=== PATIENT | male | born 1935 | race Caucasian/White ===

== ENCOUNTER 2017-06-14 12:22 | Outpatient (CLI) | payer MEDICARE ==
--- NOTE | 2017-06-14 14:53 | RAD ---
TWO VIEWS RIGHT KNEE: Indication: Right knee pain. Comparison: None. FINDINGS: There is mild osteoarthrosis involving the right knee, predominately affecting the medial patella and patellofemoral compartments. There is mild joint capsular distention. No acute fracture is evident. IMPRESSION: Mild osteoarthrosis. No acute osseous abnormality. POS: [facility]
== END 2017-06-14 12:23 | disposition home or self-care (01) ==
LOC: SCSRAD 12:22
PROVIDERS: ATTEND Family Medicine
DX: M25.561 Pain in right knee (principal); M17.11 Unilateral primary osteoarthritis, right knee

== ENCOUNTER 2018-02-01 07:35 | Inpatient (IN) | payer MEDICARE ==
[2018-02-01 08:36] LABS: #Eosinphils 0.1 thou/uL (0.0-0.7); #Lymphocytes 2.2 thou/uL (1.20-3.40); #Monocytes 0.7 thou/uL (0.11-0.59); #Neutrophils 4.9 thou/uL (1.40-6.50); %Basophils 0.2 % (0.0-1.0); %Eosinophils 1.5 % (0.0-10.0); %Lymphocytes 27.5 % (21.0-51.0); %Monocytes 8.7 % (0.0-10.0); Hemoglobin 12.4 g/dL (14.0-18.0); Mean Corpuscular Volume 96.7 fL (78.0-98.0); Mean Platelet Volume 7.2 fL (7.4-10.4); Platelet Count 224 thou/uL (130-400); RBC Distribution Width 11.5 % (11.5-14.5); Red Blood Cell (RBC) Count 4.01 mill/uL (4.70-6.10)
[2018-02-01 09:03] LABS: Anion Gap 12 mmol/L (10-20); BUN (Urea Nitrogen) 30 mg/dL (8.4-25.7); Calc. Creatinine Clearance 59 mL/min (70-130); Calcium 9.3 mg/dL (7.8-10.44); Carbon Dioxide 27 mmol/L (23-31); Chloride 104 mmol/L (98-107); Estimated GFR-MDRD 56; Glucose 99 mg/dL (83-110); Potassium 3.9 mmol/L (3.5-5.1); Sodium 139 mmol/L (136-145)
[2018-02-01] MEDS ORDERED: Sodium Chloride 0.9% 10 ML ONE (10:28)
[2018-02-01] MEDS ORDERED: Fentanyl 100 MCG/2 ML VIAL ONE ×4 (10:30→12:52)
[2018-02-01] MEDS ORDERED: CEFAZOLIN/Water 2 GM/20 ML SYRINGE ONE (10:36)
[2018-02-01] MEDS ORDERED: Ondansetron HCl/PF 4 MG/2 ML Vial IVP PRN (12:07)
[2018-02-01] MEDS ORDERED: Promethazine HCl 25 MG/ML VIAL SLOW IVP PRN (12:07)
[2018-02-01] MEDS ORDERED: Promethazine HCl 25 MG/ML VIAL IM PRN ×2 (12:07→14:23)
[2018-02-01] MEDS ORDERED: Morphine Sulfate 2 MG/ML SYRINGE SLOW IVP PRN (12:07)
--- NOTE | 2018-02-01 13:55 | OP ---
DATE OF PROCEDURE: 02/01/2018 SURGEON: Dayday Navarrete M.D. PHOTOGRAPHY PROFESSOR: Celine Rahman PA-C. PROCEDURES: Exploration of spinal fusion L4-L5, removal of hardware left L4-L5, posterolateral arthr odesis L4-L5, cancellous bone chips, local morselized autograft, BMP, pedicle screw instrumentation L 4-L5. PROCEDURE IN DETAIL: The patient was brought to the operating room and intubated. He was rolled in the prone position on gel-filled chest rolls. The previous incision was reopened and the L4-L5 regio n was explored. We removed the broken screw heads, rods and nuts without difficulty. We explored th e fusion and could not be convinced that it was solid. We next placed pedicle screws at right L4 and right L5 using lateral fluoroscopic guidance. A sobeida was secured between the screws, connected by nu ts, which were final tightened. The left lateral and posterolateral surfaces were prepared for the p urpose of arthrodesis and a combination of cancellous bone chips and local morselized autograft was c ombined with BMP on a Gelfoam pledget and laid in the lateral gutter at L4-L5 on the left. The wound was then irrigated, immaculate hemostasis was secured, vancomycin powder was applied and the wound w as closed in anatomic layers.
[2018-02-01] MEDS ORDERED: Morphine 4 MG/ML VIAL SLOW IVP PRN (14:23)
[2018-02-01] MEDS ORDERED: diphenhydrAMINE 25 MG CAP PO PRN (14:23)
[2018-02-01] MEDS ORDERED: traMADol HCl 50 MG TAB PO PRN ×2 (14:23)
[2018-02-01] MEDS ORDERED: HYDROcodone/Acetaminophen 10/325 mg Tablet PO PRN (14:23)
[2018-02-01] MEDS ORDERED: tiZANidine HCl 4 MG TAB PO PRN (14:23)
[2018-02-01] MEDS ORDERED: Promethazine 25 MG TAB PO PRN (14:23)
[2018-02-01] MEDS ORDERED: Ondansetron PF 4 MG/2 ML Vial IM PRN (14:23)
[2018-02-01] MEDS ORDERED: Milk Of Magnesia 30 ML UDCUP PO PRN (14:23)
[2018-02-01] MEDS ORDERED: diphenhydrAMINE 50 MG/ML VIAL IVP PRN (14:23)
[2018-02-01] MEDS ORDERED: Mag-Al 1200 mg/1200 mg/30 ML UDCUP PO PRN (14:23)
[2018-02-01] MEDS ORDERED: Promethazine HCl 12.5 MG SUPP PR PRN (14:23)
[2018-02-01] MEDS ORDERED: Ondansetron PF 4 MG/2 ML Vial ONE (14:49)
[2018-02-01] MEDS ORDERED: Lidocaine 1% PF 5 ML VIAL ONE (14:49)
[2018-02-01] MEDS ORDERED: Glycopyrrolate 0.2 MG/ML 5 ML SYRINGE ONE (14:49)
[2018-02-01] MEDS ORDERED: Dexamethasone 20 MG/5 ML VIAL ONE (14:49)
[2018-02-01] MEDS ORDERED: PROPOFOL 200 MG/20 ML VIAL ONE (14:49)
[2018-02-01] MEDS: Gabapentin 300 MG CAP PO SCH ×2 (17:26→20:30)
[2018-02-01 17:45] VITALS: BMI 25.7
[2018-02-01] MEDS: Sodium Chloride 0.9% 1,000 ML IV SCH (18:47)
--- NOTE | 2018-02-01 19:01 | CON ---
DATE OF CONSULTATION: 02/01/2018 ATTENDING PHYSICIAN: Dr. Navarrete REASON FOR CONSULTATION: Postoperative medical management. HISTORY OF PRESENT ILLNESS: Patient is an 82-year-old male with a history of a prior lumbar stabiliz ation surgery having some persistent pain who returns today to have broken hardware removed and that occurred this morning. Patient had removal of L4-L5 hardware, posterolateral arthrodesis at L4-L5 wi th cancellous bone chips, local morselization autograft, BMP pedicle screws and instrumentation at L4 -5 on the right. The patient reports he is currently having a bit of postoperative pain in one spot in the lower back, but is having no pain in his legs or radicular type symptoms. Right now patient's primary concern is that he has not seen his daughter since the surgery, although the nurses have yang arently been trying to locate her. PAST MEDICAL HISTORY: Notable for hypertension, hyperlipidemia, depression, anxiety, insomnia, perip heral neuropathy, obstructive sleep apnea, and diverticulosis. PAST SURGICAL HISTORY: Prior lumbar spine surgery and a pelvic fracture repair. SOCIAL HISTORY: Nonsmoker, social drinker. Patient is . He reports his surrogate decision hailey beasley would be his daughter, Cortney Banegas and he is a [employer]. FAMILY HISTORY: Father of a myocardial infarction. Mother quite elderly of pneumonia. REVIEW OF SYSTEMS: A 10-system review was negative. ALLERGIES: None. CURRENT MEDICATIONS: Pravastatin 40 mg at bedtime, Prozac 20 mg every day, B12 1000 mg p.o. daily, v itamin D3 5000 units daily, hydrocodone 10/325 one p.o. b.i.d., Prinzide 1 p.o. daily, Neurontin 600 mg p.o. t.i.d., trazodone 50 mg at bedtime. PHYSICAL EXAMINATION: VITAL SIGNS: Pulse 50-64, respirations 16, BP 130/71, O2 sat 96%. GENERAL APPEARANCE: Age appropriate male. He is awake and alert. He has no distress. He is pleasa nt and conversant. HEENT: Pupils are slightly constricted and modestly reactive. He has no OP lesions. Tiny spot of e rythema on the left lateral soft palate distally. NECK: Supple and symmetric without lymphadenopathy, JVD, or carotid bruits. CARDIOVASCULAR: Regular rate and rhythm with a 2/6 murmur at the left upper sternal border. LUNGS: Clear to auscultation bilaterally. ABDOMEN: Soft, nontender, nondistended, positive bowel sounds. EXTREMITIES: Warm and dry with good peripheral circulation. Normal sensation throughout the lower e xtremities. LABORATORY DATA: White count 8.0, hemoglobin 12.4, platelets 224. Sodium 139, potassium 3.9, chlori de 104, CO2 27, BUN 30, creatinine 1.24, glucose 99, calcium 9.3. IMPRESSION AND PLAN: 1. Postop lumbar spinal stabilization surgery following removal of broken hardware. Patient is doin g well. We will defer postoperative management to the surgery team. 2. Hypertension, stable. The patient is back on his usual home regimen. We will continue to monito r. 3. Hyperlipidemia. He is back on his statin. 4. Peripheral neuropathy. Patient is on his usual gabapentin dose. 5. Depression and anxiety. Continue with his fluoxetine and trazodone. I appreciate the opportunity to participate in this patient's care.
[2018-02-01] MEDS: HYDROcodone/Acetaminophen 10/325 mg Tablet PO SCH (20:29)
[2018-02-01] MEDS: CEFAZOLIN/Water 2 GM/20 ML SYRINGE SLOW IVP SCH (20:29)
[2018-02-01] MEDS: Atorvastatin Calcium 10 MG TAB PO SCH (20:30)
[2018-02-01] MEDS: traZODone HCl 50 MG TAB PO SCH (20:30)
[2018-02-02] MEDS: HYDROcodone/Acetaminophen 10/325 mg Tablet PO PRN ×2 (00:18→15:51)
[2018-02-02] MEDS: CEFAZOLIN/Water 2 GM/20 ML SYRINGE SLOW IVP SCH (03:38)
[2018-02-02] MEDS: Sodium Chloride 0.9% 1,000 ML IV SCH ×2 (04:22→21:10)
[2018-02-02] MEDS: Lisinopril/Hydrochlorothiazide 20/25 mg Tablet PO SCH (08:12)
--- NOTE | 2018-02-02 08:14 | EKG ---
Test Reason : PREOP Blood Pressure : / mmHG Vent. Rate : 049 BPM Atrial Rate : 049 BPM P-R Int : 184 ms QRS Dur : 082 ms QT Int : 472 ms P-R-T Axes : 035 012 019 degrees QTc Int : 426 ms Sinus bradycardia Otherwise normal ECG When compared with ECG of 01-AUG-2013 06:56, No significant change was found Confirmed by DONOVAN WARNER ([id number]) on 02/02/2018 8:13:27 AM Referred By: JOSE Confirmed By:DONOVAN WARNER
[2018-02-02] MEDS: Gabapentin 300 MG CAP PO SCH ×3 (08:15→21:09)
[2018-02-02] MEDS: HYDROcodone/Acetaminophen 10/325 mg Tablet PO SCH ×2 (08:15→21:08)
[2018-02-02] MEDS: FLUoxetine HCl 20 MG CAP PO SCH (08:15)
[2018-02-02] MEDS: Cyanocobalamin (Vitamin B-12) 1,000 MCG TAB PO SCH (08:15)
[2018-02-02] MEDS ORDERED: Senokot S 8.6-50 MG TAB PO SCH (12:00)
--- NOTE | 2018-02-02 12:59 | PRG ---
DATE OF SERVICE: 02/02/2018 SUBJECTIVE: The patient reports he is feeling well today. He has only minimal pain. He is concerne d about making sure he stays regular with his bowel movements. PHYSICAL EXAMINATION: VITAL SIGNS: Temperature 98.1, pulse 47 to 60, respirations 18, O2 sat 93% on room air, BP 110/54. GENERAL: Age appropriate male in no distress. He is awake, alert, oriented, pleasant, cooperative. CARDIOVASCULAR: Heart regular rate and rhythm without gallops or rubs. He does have a 2/6 murmur at the left upper sternal border. LUNGS: Clear to auscultation bilaterally with good chest wall expansion, air exchange. ABDOMEN: Flat, soft, nontender, nondistended with positive bowel sounds. No organomegaly. EXTREMITIES: Warm and dry with good peripheral pulses and sensation. ASSESSMENT AND PLAN: 1. Postop lumbar stabilization surgery, doing well. Continue postoperative plan. 2. Hypertension is stable with his usual home regimen. 3. Hyperlipidemia, stable on statin. 4. Peripheral neuropathy, stable with his usual gabapentin dose. 5. History of depression, anxiety. Continue with his fluoxetine and trazodone.
[2018-02-02] MEDS: Atorvastatin Calcium 10 MG TAB PO SCH (21:09)
[2018-02-02] MEDS: Senokot S 8.6-50 MG TAB PO SCH (21:09)
[2018-02-02] MEDS: traZODone HCl 50 MG TAB PO SCH (21:09)
[2018-02-03] MEDS: Sodium Chloride 0.9% 1,000 ML IV SCH (05:22)
[2018-02-03] MEDS: HYDROcodone/Acetaminophen 10/325 mg Tablet PO PRN (05:25)
[2018-02-03] MEDS: Lisinopril/Hydrochlorothiazide 20/25 mg Tablet PO SCH (07:57)
[2018-02-03] MEDS: FLUoxetine HCl 20 MG CAP PO SCH (07:58)
[2018-02-03] MEDS: Gabapentin 300 MG CAP PO SCH (07:58)
[2018-02-03] MEDS: HYDROcodone/Acetaminophen 10/325 mg Tablet PO SCH (07:58)
[2018-02-03] MEDS: Senokot S 8.6-50 MG TAB PO SCH (07:59)
[2018-02-03] MEDS: Cyanocobalamin (Vitamin B-12) 1,000 MCG TAB PO SCH (07:59)
[2018-02-03 08:00] VITALS: BP 138/70
[2018-02-03 11:11] VITALS: TEMP 99.1
--- NOTE | 2018-02-03 12:01 | DIS ---
DATE OF ADMISSION: 02/01/2018 DATE OF DISCHARGE: 02/03/2018 ATTENDING PHYSICIAN: Dayday Navarrete M.D. HOSPITAL COURSE: The patient is an 82-year-old male status post revision of L4-L5 lumbar fusion with BNP. The patient tolerated the procedure well and after was admitted to the Med/Surg floor where he was monitored closely , pain was well controlled with p.o. medications, and he was tolerating a regular diet. The patient did initially have some bloody drainage from this incision, but this resolved after postoperative day #1 and he has had no additional drainage issues. The patient has been mobilizing well as physical therapy and using an LSO brace for all out of bed activities which he has provided from home. This morning at the bedside he is awake, alert, comfortable. He has free active range of motion of all extremities, 5/5 strength throughout. No reflex asymmetry. He has a well-healing incision with lyndsay intact. We will plan to dismiss the patient to home later today. I have discussed home care precautions and will plan to follow up with the patient in 2 weeks with x- rays. Please reach out to Neurosurgery for additional questions or concerns. BARB
== END 2018-02-03 14:29 | disposition home or self-care (01) | DRG 460 ==
LOC: SURG A 07:35 → EDSTATUS 10:28 → SJJU 12:54
PROVIDERS: ADMIT Neurological Surgery; ATTEND Neurological Surgery
PROC: 0SG0071 Fusion of Lumbar Vertebral Joint with Autologous Tissue Substitute, Posterior Approach, Posterior Column, Open Approach (ICD-10-PCS; principal; 2018-02-01)
PROC: 0SP004Z Removal of Internal Fixation Device from Lumbar Vertebral Joint, Open Approach (ICD-10-PCS; 2018-02-01)
DX: T84.498A Other mechanical complication of other internal orthopedic devices, implants and grafts, initial encounter (principal); I10 Essential (primary) hypertension; E78.5 Hyperlipidemia, unspecified; F41.9 Anxiety disorder, unspecified; G47.00 Insomnia, unspecified; M47.9 Spondylosis, unspecified; G47.33 Obstructive sleep apnea (adult) (pediatric); R33.9 Retention of urine, unspecified; Z82.49 Family history of ischemic heart disease and other diseases of the circulatory system; G62.9 Polyneuropathy, unspecified; K57.90 Diverticulosis of intestine, part unspecified, without perforation or abscess without bleeding; F32.9 Major depressive disorder, single episode, unspecified
CPT/HCPCS: 36415; 76001; 80048; 85025; 93005; 93010; C1713; G8978-GP-CJ; G8979-GP-CI; J1100; J1200; J2001; J2405; J2704; J3010; J3370; J3490

== ENCOUNTER 2018-02-17 10:07 | Outpatient (CLI) | payer MEDICARE ==
--- NOTE | 2018-02-17 12:45 | RAD ---
LUMBAR SPINE SERIES TWO VIEWS: HISTORY: Followup from surgery. COMPARISON: 03/28/2014 FINDINGS: A single screw is seen across the left SI joint. There has been removal of a portion of the left-kristal ed pedicle screws at the L4-L5 level, and now there has been placement of right-sided pedicle screws also at this level. Spondylolisthesis of L4 and L5 is noted, of approximately 11 mm. Disk narrowing is seen at L2-L3, L3-L4, L4-L5, and L5-S1. IMPRESSION: Interval removal of the nonfractured component of the left-sided pedicle screws L4-L5. Portions of t he screws still remain. There has been replacement of right-sided pedicle screws at this level. POS: [facility]
== END 2018-02-17 10:08 | disposition home or self-care (01) ==
LOC: TBSIIMAG 10:07
PROVIDERS: ATTEND Physician Assistant
DX: M54.17 Radiculopathy, lumbosacral region (principal); Z98.1 Arthrodesis status
CPT/HCPCS: 72100

== ENCOUNTER 2018-03-30 13:53 | Outpatient (CLI) | payer MEDICARE ==
--- NOTE | 2018-03-30 14:34 | RAD ---
RADIOGRAPH LUMBAR SPINE 2 VIEWS: DATE: 03/30/18 HISTORY: 82-year-old male with: ICD-10: M54.5 low back pain. COMPARISON: 02/17/13. FINDINGS: There are five lumbar-type vertebrae. There has been interval removal of the dorsal skin lyndsay. There has been no other interval change. Long metallic plate and multiple screws fixating the left pelvis, including the posterior aspect of t he left acetabulum. Single, transversely oriented, partially threaded screw across left SI joint with distal tip at ventral aspect of the S1 vertebral body. There are five lumbar-type vertebrae. Levoscoliosis with apex of curvature at approximately L2. Right pedicle screws at L4 and L5 with vertical interlocking sobeida. Abandoned distal screw components in the left pedicles and bodies of L4 and L5. Prominent Grade I anterolisthesis of L4 on L5. Mild to modera te disc space narrowing asymmetrically at all levels from L2-3 through L5-S1. Severe degenerative fac et changes at L4-5 and L5-S1. Grade I left lateral chronic subluxation of L3 on L4. There is asymmetrically severe joint space narrowing, and mild irregularity, of the right hip joint, only partially imaged. IMPRESSION: 1. Right pedicle screws with interlocking sobeida, at L4-5. 2. Abandoned left pedicle screws at L4 and L5. 3. Prominent Grade I spondylolisthesis at L4-5. 4. Lumbar spondylosis, consisting of multilevel degenerative disc disease, high grade lower level fa cet osteoarthrosis, and levoscoliosis. 5. Arthrodesis of left sacroiliac joint with single long screw. 6. Status post open reduction and internal fixation of left posterior acetabulum. 7. High grade osteoarthrosis of the right hip. 8. No significant interval change since 02/17/18. MARCI [] POS: [facility]
== END 2018-03-30 13:54 | disposition home or self-care (01) ==
LOC: TBSIIMAG 13:53
PROVIDERS: ATTEND Neurological Surgery
DX: M54.5 Low back pain (principal); M41.9 Scoliosis, unspecified; M47.816 Spondylosis without myelopathy or radiculopathy, lumbar region; M47.817 Spondylosis without myelopathy or radiculopathy, lumbosacral region; M16.11 Unilateral primary osteoarthritis, right hip; Z98.1 Arthrodesis status
CPT/HCPCS: 72100

== ENCOUNTER 2018-05-30 13:46 | Outpatient (CLI) | payer MEDICARE ==
--- NOTE | 2018-05-30 14:59 | RAD ---
LUMBAR SPINE TWO VIEWS: HISTORY: Radiculopathy. Back surgery. COMPARISON: 03/30/2018 FINDINGS: Stable hardware. Stable broken screws along the left L4 and L5 level. Stable solitary screw jozef ing the left SI joint and left bony pelvis. Stable anterolisthesis of L4 upon L5 (1 cm). Stable mild loss of disk space height in the distal tho racic spine. IMPRESSION: No change. POS: [facility]
== END 2018-05-30 13:47 | disposition home or self-care (01) ==
LOC: TBSIIMAG 13:46
PROVIDERS: ATTEND Neurological Surgery
DX: M54.16 Radiculopathy, lumbar region (principal)
CPT/HCPCS: 72100

== ENCOUNTER 2019-12-07 07:40 | Outpatient (CLI) | payer MEDICARE, OTHER ==
[2019-12-08 14:02] LABS: SARS-CoV-2 MS2 Positive; SARS-CoV-2 N Gene Negative; SARS-CoV-2 S Gene Negative; SARS-CoV-2 by NAA Not Detected (NotDetected); SARS-CoV-2 orf1ab Negative
== END 2019-12-07 07:41 | disposition home or self-care (01) ==
LOC: LABBT 07:40
PROVIDERS: ATTEND Neurological Surgery
DX: M54.16 Radiculopathy, lumbar region (principal); M43.16 Spondylolisthesis, lumbar region; Z20.828 Contact with and (suspected) exposure to other viral communicable diseases
CPT/HCPCS: 87635; U0003

== ENCOUNTER 2019-12-07 11:15 | Inpatient (IN) | payer MEDICARE ==
[2019-12-11 11:06] VITALS: BMI 26.4
--- NOTE | 2019-12-11 21:49 | HP ---
HISTORY: Mr. Moore has a history of prior left SI joint fusion as well as a prior lumbar spinal fusion. Unfortunately, this fusion had half of the construct break and the screws were removed. He presents now with right-sided radiculopathy that has components of L5 and L4. Pain started in the beginning of 2019, has a new MRI scan and flexion-extension x-rays from [facility] that reveal some instability. Recent CT shows possible lucency around the hardware, which very well could explain the symptoms that he is experiencing. He hopes to discuss some type of surgical intervention if possible. PAST MEDICAL HISTORY: Significant for hypertension. PAST SURGICAL HISTORY: Lumbar spinal fusion, SI joint fusion. CURRENT MEDICATIONS: [place], vitamin D, aspirin, fluoxetine, lisinopril, tramadol, pravastatin, trazodone, and gabapentin. ALLERGIES: NO KNOWN DRUG ALLERGIES. PHYSICAL EXAMINATION: Deferred for [facility] visit. ASSESSMENT: Lumbar back pain and lumbar radiculopathy. PLAN: Dr. Ferrer met with the patient, reviewed imaging, and advocated for an exploration of his L4-5 fusion and removal of hardware and onlay graft fusion. He explained to the patient the risks, benefits, and alternatives to the procedure. The patient expressed understanding and elected to move forward with surgery as discussed. I do believe the patient is mentally competent and capable of making medical decisions for himself. We will move forward with surgery as planned. Job ID: [id number]
[2019-12-12 07:30] LABS: Hemoglobin 12.7 g/dL (14.0-18.0); Mean Corpuscular HGB CONC 32.2 g/dL (32.0-36.0); Mean Corpuscular Hemoglobin 32.4 pg (27.0-31.0); Mean Platelet Volume 7.3 fL (7.4-10.4); Platelet Count 232 thou/uL (130-400); RBC Distribution Width 11.8 % (11.5-14.5); Red Blood Cell (RBC) Count 3.91 mill/uL (4.70-6.10); White Blood Cell (WBC) Count 8.1 thou/uL (4.8-10.8)
[2019-12-12] MEDS ORDERED: Bupivacaine PF 0.5% 30 ML VIAL ONE (07:41)
[2019-12-12] MEDS ORDERED: EPINEPHrine 1 MG/ML AMP ONE (07:41)
[2019-12-12] MEDS ORDERED: Thrombin 5000 UNITS/5 ML VIAL ONE (07:42)
[2019-12-12 07:45] LABS: Anion Gap 12 mmol/L (10-20); BUN (Urea Nitrogen) 24 mg/dL (8.4-25.7); Calc. Creatinine Clearance 55 mL/min (70-130); Calcium 8.7 mg/dL (7.8-10.44); Carbon Dioxide 29 mmol/L (23-31); Chloride 102 mmol/L (98-107); Estimated GFR-MDRD 51; Glucose 97 mg/dL (83-110); Potassium 3.9 mmol/L (3.5-5.1); Sodium 139 mmol/L (136-145)
[2019-12-12] MEDS ORDERED: Fentanyl 100 MCG/2 ML VIAL ONE ×2 (07:51→09:47)
[2019-12-12] MEDS ORDERED: SUGAMMADEX SODIUM 200 MG/2 ML VIAL ONE (09:35)
[2019-12-12] MEDS ORDERED: Tamsulosin HCl 0.4 MG CAP ONE (10:05)
[2019-12-12] MEDS ORDERED: Morphine 2 MG/ML VIAL ONE ×3 (10:15→10:56)
[2019-12-12] MEDS ORDERED: Lidocaine 1% PF 5 ML VIAL ONE (10:20)
[2019-12-12] MEDS ORDERED: Ondansetron PF 4 MG/2 ML Vial ONE (10:20)
[2019-12-12] MEDS ORDERED: Rocuronium Bromide 10 MG/ML (10ML VIAL) ONE (10:20)
[2019-12-12] MEDS ORDERED: Dexamethasone 20 MG/5 ML VIAL ONE (10:20)
[2019-12-12] MEDS ORDERED: Glycopyrrolate 0.2 MG/ML 5 ML SYRINGE ONE (10:20)
[2019-12-12] MEDS ORDERED: PROPOFOL 200 MG/20 ML VIAL ONE (10:20)
[2019-12-12] MEDS ORDERED: HYDROcodone/Acetaminophen 5/325 mg Tablet ONE (11:58)
--- NOTE | 2019-12-12 12:59 | OP ---
DATE OF PROCEDURE: 12/12/2019 PREVENTION COORDINATOR: Dayday Alvarez PA-C INDICATION: Hardware failure and pain. PROCEDURES PERFORMED: Reoperation, removal of posterolateral instrumented fusion hardware on the right, exploration of fusion, placement of allograft. ANESTHESIA: General. DESCRIPTION OF PROCEDURE: The patient was brought into the operating room and placed under general anesthesia. He was flipped from supine to prone position on the operating room table. A linear incision was placed at the location of the prior incision. After prepping and draping and after an appropriate preoperative pause, the incision was created. The soft tissues were swept away from midline. A self-retaining retractor was placed. The patient's screw heads were identified on the right from the prior operation, where they were loosened and had trinh-hardware lucency. The set screws, sobeida, and screw heads were removed in total. We further decorticated bone in this area and performed an onlay fusion using DBM. The wound was then irrigated. Hemostasis was maintained throughout. The wound was then closed in anatomic layers and a pressure dressing was applied. There were no known procedural complications. Job ID: [id number]
== END 2019-12-12 17:00 | disposition home or self-care (01) | DRG 460 ==
LOC: SURG A 12-12 06:21
PROVIDERS: ADMIT Neurological Surgery; ATTEND Neurological Surgery
PROC: 0SG00K1 Fusion of Lumbar Vertebral Joint with Nonautologous Tissue Substitute, Posterior Approach, Posterior Column, Open Approach (ICD-10-PCS; principal; 2019-12-12)
PROC: 0SP00AZ Removal of Interbody Fusion Device from Lumbar Vertebral Joint, Open Approach (ICD-10-PCS; 2019-12-12)
DX: T84.296A Other mechanical complication of internal fixation device of vertebrae, initial encounter (principal); M54.16 Radiculopathy, lumbar region; I10 Essential (primary) hypertension; Y83.1 Surgical operation with implant of artificial internal device as the cause of abnormal reaction of the patient, or of later complication, without mention of misadventure at the time of the procedure; Z98.1 Arthrodesis status; Z79.82 Long term (current) use of aspirin
CPT/HCPCS: 36415; 76000; 80048; 85027; 93005; 93010; C1713; J0171; J0690; J1100; J2270; J2405; J2704; J3010; S0020